=== PATIENT | male | born 1945 | race Caucasian/White ===

== ENCOUNTER 2019-03-22 09:58 | Inpatient (IN) | payer OTHER ==
[~2019-03-22] VITALS: Ht 182.9 cm; Wt 54.4 kg
[2019-03-22 09:59] VITALS: BP 80/45
[2019-03-22 14:03] VITALS: BP 89/47
[2019-03-22] MEDS ORDERED: DEPAKOTE ER500 M1 PO (14:25)
[2019-03-22] MEDS ORDERED: ZYPREXA 5 MG TAB5 M1 PO (14:25)
[2019-03-22] MEDS ORDERED: VITAMIN D22000 UNIT PO (14:26)
[2019-03-22] MEDS ORDERED: TRAZODONE HCL50 MG PO (14:26)
[2019-03-22] MEDS ORDERED: PRAVACHOL 20 MG20 M1 PO (14:26)
[2019-03-22] MEDS ORDERED: MILK OF MA400 MG/5 M PO (14:27)
[2019-03-22] MEDS ORDERED: BISACODYL10 MG RECTAL (14:27)
[2019-03-22] MEDS ORDERED: TYLENOL325 MG PO (14:27)
[2019-03-22] MEDS ORDERED: MI-ACID80 MG PO (14:28)
[2019-03-22] MEDS ORDERED: DORYX MPC120 MG PO (14:29)
[2019-03-22 15:09] VITALS: BP 84/59
[2019-03-22 16:01] LABS: POTASSIUM 3.9 mmol/L (3.5-5.1)
[2019-03-22 16:02] LABS: CALCIUM 9.4 mg/dL (8.5-10.1); CREATININE 3.1 mg/dL (0.7-1.3); TOTAL BILIRUBIN 0.5 mg/dL (<0.1-1.0)
[2019-03-22 16:03] LABS: ALBUMIN 2.5 g/dL (3.4-5.0); TOTAL PROTEIN 7.7 g/dL (6.4-8.2)
[2019-03-22 16:47] LABS: URINE BILIRUBIN NEGATIVE (Negative); URINE BLOOD 2+ (Negative); URINE CLARITY CLOUDY; URINE COLOR YELLOW; URINE GLUCOSE-RANDOM* NEGATIVE (Negative); URINE KETONES NEGATIVE (Negative); URINE PROTEIN (DIPSTICK) TRACE (Negative)
[2019-03-22 16:48] LABS: CASTS None Seen /LPF (None Seen); CRYSTALS None Seen /LPF (None Seen); SQUAMOUS None Seen /LPF (0-3); URINE LEUKOCYTES-REFLEX 3+ (Negative); URINE NITRITE-REFLEX POSITIVE (Negative); URINE RBC 3-10 Few /HPF (0-2); URINE UROBILINOGEN 0.2 E.U./dl (0.2-1.0); URINE WBC-REFLEX >25 Many /HPF (0-5)
[2019-03-22 16:59] LABS: AMP/METHAMP Negative (Negative); BARBITURATES Negative (Negative); BENZODIAZEPINES Negative (Negative); COCAINE Negative (Negative); METHADONE Negative (Negative); OPIATES Negative (Negative); PCP Negative (Negative)
[2019-03-22 16:59] LABS: HEMATOCRIT 38.9 % (42.0-52.0); HEMOGLOBIN 11.7 gm/dL (14.0-18.0); RBC 4.04 mil/uL (4.50-6.00); WBC 19.7 thou/uL (4.0-11.0)
[2019-03-22 17:00] LABS: ABSOLUTE NEUTROPHILS 16.7 thou/uL (1.4-8.2); MCHC 30.1 % (28.0-37.0); MCV 96.4 fL (80.0-100.0); PLATELET COUNT 219 thou/uL (150-400); PLATELET ESTIMATE NORMAL; RDW 17.2 % (10.5-14.5)
[2019-03-22 17:01] LABS: ANISOCYTOSIS 1+; BURR CELLS FEW; LARGE PLATELETS OCCASIONAL; OVALOCYTES OCCASIONAL; POIKILOCYTOSIS 1+
[2019-03-22 19:44] VITALS: BP 82/54
[2019-03-23 00:21] VITALS: BP 87/55
[2019-03-23 03:21] VITALS: BP 83/48
[2019-03-23 06:08] LABS: HEMATOCRIT 31.1 % (42.0-52.0); HEMOGLOBIN 9.8 gm/dL (14.0-18.0); MCH 29.5 pg (26.0-34.0); MCHC 31.6 g/dL (28.0-37.0); MCV 93.5 fL (80.0-100.0); RBC 3.32 mil/uL (4.50-6.00); RDW 16.7 % (10.5-14.5); WBC 16.6 thou/uL (4.0-11.0)
[2019-03-23 06:21] LABS: CALCIUM 8.4 mg/dL (8.5-10.1); POTASSIUM 3.3 mmol/L (3.5-5.1)
[2019-03-23 06:25] LABS: CREATININE 2.1 mg/dL (0.7-1.3)
[2019-03-23 08:42] VITALS: BP 94/57
[2019-03-23 12:06] VITALS: BP 91/59
[2019-03-23 16:00] VITALS: BP 89/61
[2019-03-24 03:24] VITALS: BP 103/63
[2019-03-24 04:54] VITALS: BP 88/58
[2019-03-24 06:18] LABS: ALBUMIN 1.8 g/dL (3.4-5.0); CALCIUM 7.8 mg/dL (8.5-10.1); CREATININE 1.9 mg/dL (0.7-1.3); PHOSPHORUS 3.1 mg/dL (2.5-4.9); POTASSIUM 3.4 mmol/L (3.5-5.1)
[2019-03-24 07:49] VITALS: BP 95/57
[2019-03-24 17:20] VITALS: BP 91/53
[2019-03-24 19:40] VITALS: BP 95/43
[2019-03-25] VITALS (7 sets, daily range): BP systolic 83–98; BP diastolic 45–61
[2019-03-25 05:00] LABS: ALBUMIN 1.5 g/dL (3.4-5.0); CALCIUM 7.4 mg/dL (8.5-10.1); CREATININE 1.5 mg/dL (0.7-1.3); PHOSPHORUS 2.6 mg/dL (2.5-4.9); POTASSIUM 3.4 mmol/L (3.5-5.1)
[2019-03-25 10:27] LABS: HCO3 17.6 mmol/L (22.0-26.0); PCO2 32.8 mmHg (35.0-45.0); PO2 61.3 mmHg (80.0-100.0); pH 7.348 (7.360-7.450)
[2019-03-25 10:28] LABS: sO2 90.7 % (92.0-98.0)
[2019-03-25 10:30] LABS: BE(vivo) -7.1 mmol/L (-2 to +3)
[2019-03-26 03:27] VITALS: BP 85/48
[2019-03-26 05:12] LABS: CALCIUM 7.9 mg/dL (8.5-10.1); CREATININE 1.3 mg/dL (0.7-1.3); MAGNESIUM 1.9 mg/dL (1.8-2.4); POTASSIUM 3.9 mmol/L (3.5-5.1)
[2019-03-26 06:03] LABS: HEMATOCRIT 30.6 % (42.0-52.0); HEMOGLOBIN 9.8 gm/dL (14.0-18.0); MCH 29.4 pg (26.0-34.0); MCHC 32.1 g/dL (28.0-37.0); MCV 91.6 fL (80.0-100.0); PLATELET COUNT 125 thou/uL (150-400); RBC 3.34 mil/uL (4.50-6.00); RDW 15.8 % (10.5-14.5); WBC 11.2 thou/uL (4.0-11.0)
[2019-03-26 07:45] VITALS: BP 93/55
--- NOTE | 2019-03-26 08:07 | HC ---
[facility] [place] [address] CONSULTATION Name: ZAINAB GARCIA Room #: 217-P [facility] IN [facility].#: [id number] Admission: 03/22/19 Attend Phys: Chaya Wilkes MD Discharge: Date of : 45 Report #: [id number] THIS REPORT FOR: cc: Orlin Agarwal,Xavier Raza MD ~ CC: Orlin Wilkse DATE OF SERVICE: 03/23/2019 WOUND CARE CONSULTATION NOTE REASON FOR CONSULTATION: Left hip pressure ulcer in a chronically debilitated gentleman admitted for altered mental status, dehydration, and urinary tract infection with acute kidney injury. HISTORY OF PRESENT ILLNESS: The patient is a 74-year-old man who appears chronically debilitated with severe lower extremity contractures, admitted for altered mental status with poor responsiveness, dehydration, urinary tract infection and acute kidney injury with creatinine of 3.1. The patient was not able to give any history. He was admitted by Dr. Wilkes. Wound care was consulted since it was noted that he has pressure ulcer of his left hip. PAST MEDICAL HISTORY: Unobtainable. PAST SURGICAL HISTORY: Unobtainable. SOCIAL HISTORY: Unobtainable. LABORATORY DATA: White blood count on admission 19, now 16.6. PHYSICAL EXAMINATION: GENERAL: Shows a 74-year-old retirement resident, who is noncommunicative, but uncooperative to changing of position. HEENT: Mucous membranes are moist. NECK: Supple. LUNGS: Respirations are unlabored. ABDOMEN: Soft. EXTREMITIES: Lower extremities are severely contractured. Body was scanned for cutaneous wound. Index wound is a 3 cm x 3 cm, round, unstageable pressure injury of the left lateral hip. This is clearly a pressure injury. This is only slightly moist and black in color. This is unstageable, but clinically likely down to bone. There is no surrounding redness. This is tender to touch. IMPRESSION: [facility] [address] [place] [address] CONSULTATION Name: ZAINAB GARCIA Room #: 217-[facility] IN [facility].#: [id number] Admission: 03/22/19 Attend Phys: Chaya Wilkes MD Discharge: Date of : 45 Report #: [id number] 1. Debility and immobility of severe lower extremity contractures in a retirement resident. 2. Altered mental status. 3. Dehydration. 4. Urinary tract infection. 5. Acute kidney injury, creatinine 3.1. 6. Presumed protein-calorie malnutrition. 7. Left hip unstageable pressure ulcer with black eschar presumably necrotic down to bone. PLAN: The patient will be medically stabilized. We will care for local wound by offloading and daily Silvadene, Xeroform, and a Mepilex foam border. This injury will most likely require surgical debridement in the future once the patient is stabilized. No evidence of sepsis at the site and debridement can be deferred at present. Wound care team will follow. <ELECTRONICALLY SIGNED> By: Xavier Reed MD 03/26/1907 1513 2330 Xavier Reed MD /nt
[2019-03-26 08:39] LABS: ABSOLUTE NEUTROPHILS 7.5 thou/uL (1.4-8.2)
[2019-03-26 08:42] LABS: BURR CELLS 1+
[2019-03-26 08:43] LABS: ANISOCYTOSIS 1+; SCHISTOCYTES FEW
[2019-03-26 11:00] VITALS: BP 82/47
[2019-03-26 11:22] LABS: URINE BILIRUBIN NEGATIVE (Negative); URINE BLOOD 3+ (Negative); URINE CLARITY CLEAR; URINE COLOR YELLOW; URINE GLUCOSE-RANDOM* NEGATIVE (Negative); URINE KETONES NEGATIVE (Negative); URINE LEUKOCYTES-REFLEX NEGATIVE (Negative); URINE NITRITE-REFLEX NEGATIVE (Negative); URINE PROTEIN (DIPSTICK) TRACE (Negative); URINE SPECIFIC GRAVITY 1.025 (1.005-1.035); URINE UROBILINOGEN 0.2 E.U./dl (0.2-1.0)
[2019-03-26 11:52] LABS: SQUAMOUS 0-3 Few /LPF (0-3)
[2019-03-26 11:53] LABS: BACTERIA-REFLEX 1-9 Few /HPF (None Seen); CASTS None Seen /LPF (None Seen); CRYSTALS None Seen /LPF (None Seen); MUCUS 4-6 Moderate strn/LPF (None Seen); URINE RBC 3-10 Few /HPF (0-2); URINE WBC-REFLEX 0-5 Rare /HPF (0-5)
[2019-03-26 12:03] LABS: BE(vivo) -2.9 mmol/L (-2 to +3); HCO3 20.3 mmol/L (22.0-26.0); PCO2 29.6 mmHg (35.0-45.0); pH 7.454 (7.360-7.450); sO2 86.3 % (92.0-98.0)
[2019-03-26 12:04] LABS: PO2 47.8 mmHg (80.0-100.0)
[2019-03-26 16:00] VITALS: BP 98/59
[2019-03-26 20:10] VITALS: BP 98/57
[2019-03-27 03:53] VITALS: BP 97/55
[2019-03-27 06:52] LABS: ALBUMIN 1.5 g/dL (3.4-5.0); CALCIUM 7.5 mg/dL (8.5-10.1); CREATININE 1.1 mg/dL (0.7-1.3); MAGNESIUM 2.2 mg/dL (1.8-2.4); TOTAL BILIRUBIN 0.4 mg/dL (<0.1-1.0)
[2019-03-27 08:00] VITALS: BP 97/54
[2019-03-27 08:10] LABS: BE(vivo) -3.1 mmol/L (-2 to +3); HCO3 20.1 mmol/L (22.0-26.0); PO2 110.1 mmHg (80.0-100.0); pH 7.458 (7.360-7.450); sO2 98.3 % (92.0-98.0)
[2019-03-27 09:17] LABS: ABSOLUTE NEUTROPHILS 8.8 thou/uL (1.4-8.2); BASOPHILS 0.3 % (0.0-2.0); EOSINOPHILS 0.9 % (0.0-3.0); HEMATOCRIT 26.7 % (42.0-52.0); HEMOGLOBIN 8.7 gm/dL (14.0-18.0); LYMPHOCYTES 14.6 % (24.0-44.0); MCH 29.6 pg (26.0-34.0); MCHC 32.5 g/dL (28.0-37.0); MCV 91.2 fL (80.0-100.0); MONOCYTES 10.7 % (1.0-8.0); POLYS 73.5 % (36.0-66.0); RBC 2.93 mil/uL (4.50-6.00); RDW 15.5 % (10.5-14.5)
[2019-03-27 10:30] LABS: ANISOCYTOSIS 2+; PLATELET COUNT 132 thou/uL (150-400); PLATELET ESTIMATE NORMAL
[2019-03-27 11:30] VITALS: BP 105/54
--- NOTE | 2019-03-27 12:32 | EKG ---
[facility] [place] [address] ELECTROCARDIOGRAM REPORT Name: KOLEPATRICIAZAINAB Room #: 217- ADM IN M.R.#: [id number] Admission: 03/22/19 Attend Phys: Chaya Wilkes MD Discharge: Date of : 45 Report #: [id number] THIS REPORT FOR: cc: Orlin Agarwal,Orlin Steve,Tello Ochoa MD [facility] THIS REPORT FOR: //name// [facility] ED Test Date: 2019-03-22 Test Time: 10:16:22 Pat Name: ZAINAB GARCIA Department: Room: [facility] Gender: M Book Salesman: EKATERINA : 1945 Requested By: Kurt Alamo Order Number: [id number] MD: Tello Christie Measurements Intervals [place] Rate: 93 P: 88 [place]: 146 QRS: 71 QRSD: 112 T: 72 QT: 404 QTc: 503 Interpretive Statements Sinus rhythm Prolonged QT interval No previous ECG available for comparison Electronically Signed On 03-22-2019 17:22:22 [employer] by Tello Christie [email or web address] <ELECTRONICALLY SIGNED> By: Tello Christie MD, [facility] 03/22/19 1722 1016 [id number] Tello Christie MD, [facility] /EPI
[2019-03-27 17:00] VITALS: BP 153/78; BP 97/50
[2019-03-27 20:55] VITALS: BP 95/54
[2019-03-28 03:16] VITALS: BP 91/51
[2019-03-28 11:00] VITALS: BP 98/45
[2019-03-28 16:00] VITALS: BP 78/44
[2019-03-28 20:30] VITALS: BP 93/52
--- NOTE | 2019-03-29 08:13 | HC ---
[facility] [place] [place] [address] CONSULTATION Name: KOLEPATRICIAZAINAB Brett Room #: 217-P [facility] IN M.R.#: [id number] Admission: 03/22/19 Attend Phys: Chaya Wilkes MD Discharge: Date of : 45 Report #: [id number] THIS REPORT FOR: cc: Orlin Agarwal,Orlin Garcia,Mariusz Lloyd MD ~ CC: Orlin Wilkes REASON FOR CONSULTATION: Elevated sodium. REASON FOR PRESENTATION: Mental status information. HISTORY OF PRESENT ILLNESS: This is obtained from the chart. The patient is currently having acute mental status issue and he is not able to provide me with the history. He was brought from his facility with acute mental status changes. He was found to be in acute kidney injury with a creatinine of 3.1 and sodium of 177. No further details are available. FAMILY HISTORY: Unobtainable given the patient's current mental status. PAST SURGICAL HISTORY: Unobtainable. MEDICATIONS: From the detention: 1. Trazodone. 2. Pravastatin. 3. Magnesium. 4. Doxycycline. REVIEW OF SYSTEMS: Unobtainable given the patient's current mental status. FAMILY HISTORY: Unobtainable given the current patient's mental status. ALLERGIES: LISTED PENICILLIN. SOCIAL HISTORY: Resides in a nursing facility. PHYSICAL EXAMINATION: VITAL SIGNS: Blood pressure is 83/48. HEAD AND NECK: No jugular venous distention. CHEST: No crackles. CARDIOVASCULAR: No rub detected. ABDOMEN: Soft. EXTREMITIES: Lower extremities, no edema. LABORATORY VALUES: Reviewed. White blood cell count is 19.7. UA with positive nitrite. Urine cultures are pending. Sodium yesterday was 177. Potassium was [facility] [address] [place] [address] CONSULTATION Name: ZAINAB GARCIA Room #: 217-P [facility] IN [facility]#: [id number] Admission: 03/22/19 Attend Phys: Chaya Wilkes MD Discharge: Date of : 45 Report #: [id number] 3.9, BUN was 127, creatinine was 3.1. ASSESSMENT, IMPRESSION AND PLAN: 1. Acute kidney injury. 2. Hypernatremia due to severe free water deficit. 3. Continue with the D5W at the current rate. Serial monitoring of sodium. 4. Treat for urinary tract infection. 5. We will continue to follow. <ELECTRONICALLY SIGNED> By: Mariusz Bruno MD 03/29/19812 0 5 Mariusz Bruno MD /nt
[2019-03-29 08:30] VITALS: BP 88/44
[2019-03-29 11:46] LABS: BE(vivo) -6.7 mmol/L (-2 to +3); HCO3 16.7 mmol/L (22.0-26.0); PCO2 26.7 mmHg (35.0-45.0); pH 7.415 (7.360-7.450); sO2 95.5 % (92.0-98.0)
[2019-03-29 14:55] LABS: ABSOLUTE NEUTROPHILS 11.1 thou/uL (1.4-8.2); BASOPHILS 0.5 % (0.0-2.0); EOSINOPHILS 0.5 % (0.0-3.0); HEMATOCRIT 27.8 % (42.0-52.0); HEMOGLOBIN 8.8 gm/dL (14.0-18.0); LYMPHOCYTES 12.3 % (24.0-44.0); MCH 29.2 pg (26.0-34.0); MCHC 31.7 g/dL (28.0-37.0); MCV 92.1 fL (80.0-100.0); MONOCYTES 7.9 % (1.0-8.0); POLYS 78.8 % (36.0-66.0); RBC 3.02 mil/uL (4.50-6.00); RDW 16.5 % (10.5-14.5); WBC 14.1 thou/uL (4.0-11.0)
[2019-03-29 15:02] LABS: CALCIUM 8.2 mg/dL (8.5-10.1); CREATININE 0.9 mg/dL (0.7-1.3); POTASSIUM 3.6 mmol/L (3.5-5.1)
[2019-03-29 15:21] LABS: PLATELET COUNT 187 thou/uL (150-400)
[2019-03-29 20:15] VITALS: BP 83/50
[2019-03-30 08:03] VITALS: BP 82/42
[2019-03-30 12:25] VITALS: BP 87/41
[2019-03-30 15:55] VITALS: BP 82/42
[2019-03-30 23:57] VITALS: BP 101/59
[2019-03-31 08:20] VITALS: BP 104/57
[2019-03-31 20:45] VITALS: BP 104/52
[2019-04-01 04:33] VITALS: BP 106/62
[2019-04-01 08:02] VITALS: BP 105/59
[2019-04-01] MEDS ORDERED: MSL20MG/ML SUBLING (14:23)
[2019-04-01] MEDS ORDERED: LORAZEPAM I2 MG/1 M2 SUBLING (14:23)
[2019-04-01] MEDS ORDERED: FLOMAX0.4 MG PO (14:23)
== END 2019-04-01 18:00 | DRG 871 ==
LOC: ER 09:58 → 2N 15:17 → 4W 04-01 07:55
PROVIDERS: Emergency Medicine; Hospitalist; Internal Medicine; ADMIT Internal Medicine
PROC: 5A09357 Assistance with Respiratory Ventilation, Less than 24 Consecutive Hours, Continuous Positive Airway Pressure (ICD-10-PCS; principal; 2019-03-26)
PROC: 5A09357 Assistance with Respiratory Ventilation, Less than 24 Consecutive Hours, Continuous Positive Airway Pressure (ICD-10-PCS; 2019-03-27)
PROC: 5A09357 Assistance with Respiratory Ventilation, Less than 24 Consecutive Hours, Continuous Positive Airway Pressure (ICD-10-PCS; 2019-03-28)
DX: A41.9 Sepsis, unspecified organism (principal); G92 Toxic encephalopathy; E43 Unspecified severe protein-calorie malnutrition; R65.21 Severe sepsis with septic shock; J96.21 Acute and chronic respiratory failure with hypoxia; J69.0 Pneumonitis due to inhalation of food and vomit; N17.9 Acute kidney failure, unspecified; N39.0 Urinary tract infection, site not specified; E87.0 Hyperosmolality and hypernatremia; F03.91 Unspecified dementia, unspecified severity, with behavioral disturbance; R64 Cachexia; Z68.1 Body mass index [BMI] 19.9 or less, adult; Z66 Do not resuscitate; L89.220 Pressure ulcer of left hip, unstageable; E86.0 Dehydration; N18.9 Chronic kidney disease, unspecified; F17.210 Nicotine dependence, cigarettes, uncomplicated; Z51.5 Encounter for palliative care; E87.6 Hypokalemia; E55.9 Vitamin D deficiency, unspecified; D64.9 Anemia, unspecified; M62.84 Sarcopenia; Z79.899 Other long term (current) drug therapy; Z88.0 Allergy status to penicillin; Z88.1 Allergy status to other antibiotic agents; L89.516 Pressure-induced deep tissue damage of right ankle; L89.106 Pressure-induced deep tissue damage of unspecified part of back; L89.896 Pressure-induced deep tissue damage of other site
CPT/HCPCS: 10045; 10081; 10797